=== PATIENT | female | born 1980 | race Caucasian/White ===

== ENCOUNTER 2020-10-13 17:22 | Emergency (ER) | payer OTHER ==
[~2020-10-13] VITALS: Ht 157.5 cm; Wt 89.8 kg
[2020-10-13 17:22] VITALS: BP_SYST 157
--- NOTE | 2020-10-13 17:22 | NUR ---
BROUGHT INTO TRIAGE TENT AND TRIAGED. AWAITING ER BED
--- NOTE | 2020-10-13 18:45 | NUR ---
Pt brought by self, A&Ox4, pt presents to ER with L lower abdominal pain x 3 days, pt was told by PCP to get an US since Hx of IUD, no N/V/D or fever, skin pink and warm, cap refill <3, VSS.
--- NOTE | 2020-10-13 18:55 | NUR ---
Dr Matthews evaluating patient at bedside
[2020-10-13 19:13] LABS: BILIRUBIN,URINE NEGATIVE (NEGATIVE); BLOOD, URINE NEGATIVE (NEGATIVE); GLUCOSE,URINE 2+ (NEGATIVE); KETONES,URINE NEGATIVE (NEGATIVE); LEUKOCYTE ESTERASE ,URINE TRACE (NEGATIVE); NITRITE, URINE NEGATIVE (NEGATIVE); PROTEIN URINE NEGATIVE (NEGATIVE); UROBILINOGEN,URINE 0.2 (0.2-1.0)
[2020-10-13 19:19] LABS: CLARITY/URINE SLIGHTLY HAZY (CLEAR); COLOR,URINE STRAW (YELLOW)
--- NOTE | 2020-10-13 19:23 | NUR ---
Pt ambulated to the restroom at this time,well tolerated.
[2020-10-13 20:06] LABS: BACTERIA,URINE MODERATE /HPF (None Seen); MUCUS,URINE None Seen /LPF (None Seen); RBC,URINE NONE SEEN /HPF (0-3)
[2020-10-13 21:26] VITALS: BP_SYST 148
--- NOTE | 2020-10-13 21:27 | NUR ---
Patient given written and verbal discharge instructions and verbalizes understanding. ER MD discussed with patient the results and treatment provided. Patient in stable condition. ID arm band removed. No Rx given. Patient educated on pain management and to follow up with PMD. Pain Scale 0/10. Opportunity for questions provided and answered. Medication side effect fact sheet provided.
== END 2020-10-13 21:26 | disposition home or self-care (01) ==
LOC: SED 17:22
DX: R10.32 Left lower quadrant pain (principal); I10 Essential (primary) hypertension
CPT/HCPCS: 76830-TC; 76856-TC; 76857; 81000-TC; 81025; 87086; 99284